=== PATIENT | female | born 1970 | race Caucasian/White ===

== ENCOUNTER → 2017-08-09 | Outpatient (CLI) | payer OTHER ==
--- NOTE | 2017-08-10 13:48 | KCIC ---
DATE: 08/09/2017 EXAM: MAMMO JAROCHO SCREENING BILATERAL HISTORY: Routine screening. COMPARISON: 07/31/2016 and 05/03/2015. This study was interpreted with the benefit of Computerized Aided Detection (CAD). FINDINGS: The parenchymal pattern is stable. No dominant mass or malignant appearing microcalcifications are seen. The axillae are unremarkable. Breast Density: HETERO The breast parenchyma is heterogeneously dense, which could reduce sensitivity of mammography. Breast parenchyma level C. IMPRESSION: No mammographic features suspicious for malignancy are identified. BI-RADS CATEGORY: 1 NEGATIVE RECOMMENDED FOLLOW-UP: 12M 12 MONTH FOLLOW-UP PQRS compliance statement: Patient information was entered into a reminder system with a target due date 08/09/2018 for the next mammogram. Mammography is a sensitive method for finding small breast cancers, but it does not detect them all and is not a substitute for careful clinical examination. A negative mammogram does not negate a clinically suspicious finding and should not result in delay in biopsying a clinically suspicious abnormality. "Our facility is accredited by the [employer] Mammography [employer]."
== END | disposition home or self-care (01) ==
LOC: KCIC MAMMO 17:36
PROVIDERS: ATTEND Physician Assistant Medical
DX: Z12.31 Encounter for screening mammogram for malignant neoplasm of breast (principal)
CPT/HCPCS: 77063; G0202; 77067

== ENCOUNTER → 2018-08-24 | Outpatient (CLI) | payer OTHER ==
--- NOTE | 2018-08-24 16:50 | KCIC ---
3d digital tomography Bilateral History: Routine screening Technique: Bilateral 3d digital tomographic views were obtained with [employer] and reviewed on a [employer] workstation. In addition, CAD - computer aided detection was utilized. Comparison: August 09, 2017. Findings: Breast Tissue Density C : The breast tissue is heterogeneously dense. Scattered fibroglandular elements may obscure underlying pathology. There is a new small round density in the far lateral left breast seen on the CC view only. There are no suspicious microcalcifications or areas of architectural distortion. Impression: Asymmetric tissue density on the left. Recommend patient return for an xcc and true lateral view and ultrasound evaluation. The patient and the clinical service will be contacted by the radiology staff for further instructions. BI-RADS Category 0: Incomplete: Need additional imaging evaluation. The patient will receive a letter with the results in the mail. Your mammogram demonstrates that you have dense breast tissue, which could hide abnormalities, and if you have other risk factors for breast cancer that have been identified, you might benefit from supplemental screening tests that may be suggested by your ordering physician. Dense breast tissue, in and of itself, is a relatively common condition. This information is not provided to cause undue concern, but rather to raise your awareness and to promote discussion with your physician regarding the presence of other risk factors, in addition to dense breast tissue. A report of your mammography results will be sent to you and your physician. You should contact your physician if you have any questions or concerns regarding this report. A mammogram does not have 100% sensitivity and therefore a negative imaging study should not delay further work up of a suspicious abnormality. Patient information is entered into the [facility] reminder system using [employer] with a target due date for the next screening mammogram. The patient will receive a reminder. "Our facility is accredited by the [employer] Mammography [employer]." Electronically signed by: Sp Tellez III, MD (08/24/2018 4:46 PM) [id number]
== END | disposition home or self-care (01) ==
LOC: KCIC MAMMO 13:16
PROVIDERS: ATTEND Physician Assistant Medical
DX: Z12.31 Encounter for screening mammogram for malignant neoplasm of breast (principal)
CPT/HCPCS: 77063; 77067

== ENCOUNTER → 2018-09-13 | Outpatient (CLI) | payer OTHER ==
--- NOTE | 2018-09-13 14:07 | KCIC ---
Left breast diagnostic digital mammogram: Reason for examination: Nodular density on screening mammogram. Comparison is made to mammographic exam dated 08/24/2018. Additional lateral and exaggerated cc views of the left breast were obtained. With these additional views, there is still subtle nodularity suggested posterior laterally at approximately the 2:00 C position. This nodule shows no associated calcifications. Further evaluation with ultrasound follow-up. IMPRESSION: Small nodule persists at approximately the 2:00 C position of the left breast. Ultrasound to follow. BI-RADS Category 0: Incomplete. Needs additional imaging evaluation. Left breast ultrasound: Ultrasound examination was performed in the area of mammographic concern and at the left axilla. In the 2:00 position 11 cm from the nipple and corresponding to the area of mammographic concern, there appears to be hypoechoic septated lesion with posterior acoustic enhancement measuring 6.9 mm in greatest dimension. The appearance suggests a septated complicated cyst. No suspicious-appearing lesions are seen. No abnormal appearing lymph nodes are seen in the left axilla. IMPRESSION: Small 6.9 mm hypoechoic lesion consistent with a septated cyst at the 2:00 position of the left breast. No suspicious abnormality seen. Recommend reevaluation with ultrasound in 6 months. BI-RADS Category 3: Probably Benign. "Our facility is accredited by the [employer] Mammography [employer]." This patient's information has been entered into a reminder system for the patient to be notified with the results of her examination and a target date for the next mammogram. Electronically signed by: Ruth Ann Virk MD (09/13/2018 2:03 PM) [id number]
== END | disposition home or self-care (01) ==
LOC: KCIC MAMMO 12:44
PROVIDERS: ATTEND Physician Assistant Medical
DX: N63.21 Unspecified lump in the left breast, upper outer quadrant (principal)
CPT/HCPCS: 76641; 77065

== ENCOUNTER → 2018-10-14 | Outpatient (CLI) | payer OTHER ==
--- NOTE | 2018-10-14 16:58 | KCIC ---
Indication:Chronic pain right shoulder TECHNIQUE: 3 views of the right shoulder COMPARISON:None FINDINGS/ impression: No acute fracture or dislocation. No joint space narrowing or productive changes. Visualized right lung is clear. IMPRESSION: No acute findings. No significant arthritic process. Electronically signed by: Titus Lopez DO (10/14/2018 4:55 PM) [id number]
== END | disposition home or self-care (01) ==
LOC: KCIC 10:21
PROVIDERS: ATTEND Physician Assistant Medical
DX: M25.511 Pain in right shoulder (principal); G89.29 Other chronic pain
CPT/HCPCS: 73030

== ENCOUNTER → 2018-11-14 | Outpatient (CLI) | payer OTHER ==
--- NOTE | 2018-11-14 14:19 | KCIC ---
MR of the right shoulder HISTORY: Right shoulder pain, suspected frozen shoulder. Pain since June. TECHNIQUE: Routine multiplanar sequences are obtained. FINDINGS: The acromioclavicular joint is mildly degenerative, small undersurface osteophytes with mild mass effect. Rotator cuff demonstrates mild signal and thickening compatible with tendinosis. Mild focal fluid signal within the supraspinatus footplate attachment but no definite underside or bursal side violation. Trace fluid in the subdeltoid bursa. Mild partial subscapularis tendon tear. No significant joint effusion. Biceps tendon appears intact. Mild cystic changes at the humeral head. No aggressive bone destruction. No acute fracture. No acute soft tissue abnormality. Mild signal at the posterosuperior labrum, compatible with degeneration versus degenerative tear. IMPRESSION: 1. Rotator cuff tendinosis. Small intrasubstance or concealed defect at the supraspinatus footprint without surface rupture. Mild partial subscapularis tendon tear. 2. Posterosuperior labral signal compatible with degeneration versus a small degenerative tear. Electronically signed by: Michoacano Santos MD (11/14/2018 2:16 PM) [id number]
== END | disposition home or self-care (01) ==
LOC: KCIC MRI 12:17
PROVIDERS: ATTEND Physician Assistant Medical
DX: S46.811A Strain of other muscles, fascia and tendons at shoulder and upper arm level, right arm, initial encounter (principal); M75.81 Other shoulder lesions, right shoulder; M25.711 Osteophyte, right shoulder; M25.611 Stiffness of right shoulder, not elsewhere classified; R29.898 Other symptoms and signs involving the musculoskeletal system; X58.XXXA Exposure to other specified factors, initial encounter; Y93.89 Activity, other specified; Y92.89 Other specified places as the place of occurrence of the external cause; Y99.8 Other external cause status
CPT/HCPCS: 73221

== ENCOUNTER → 2020-03-04 | Outpatient (CLI) | payer OTHER ==
--- NOTE | 2020-03-04 14:27 | RAD ---
EXAMINATION: BREAST LEFT, MAMMO JAROCHO DIAG BILAT History: Reason: 1 yr follow up Left Breast nodule / Spl. Instructions: / History: Comparison: Pulmonary 2016, 08/09/2017, 08/24/2018 Mammographic exams. Left breast ultrasound exam 09/13/2018 Technique: Bilateral digital diagnostic mammogram views were obtained. CAD was utilized. 3-D tomosynthesis images were acquired. Findings: Breast Tissue Density C : The breasts are heterogeneously dense, which may obscure small masses. There are no dominant masses, suspicious microcalcifications, or architectural distortion. Limited left breast ultrasound exam was performed. At the 2:00 region 11 cm from the nipple, there is a 0.84 cm x 0.79 cm x 0.39 cm tall cyst. A single, small very thin echogenic septation is present. Internal echoes previously seen are much less evident. No abnormal flow. No suspicious change in the interval. IMPRESSION: No mammographic evidence of malignancy. Recommend routine screening. BI-RADS category 1: Negative. The images were reviewed with computer aided detection. Patient information is entered into the reminder system with a target due date for the next screening mammogram. Mammography is the most sensitive method for finding small breast cancers, but it does not detect them all and is not a substitute for careful clinical examination. A negative mammogram does not negate a clinically suspicious finding and should not result in delay in biopsying a clinically suspicious abnormality. "Our facility is accredited by the [employer] Mammography Program." Electronically signed by: Bob Major MD (03/04/2020 2:23 PM) [id number]
--- NOTE | 2020-03-04 16:54 | RAD ---
INDICATION: Reason: Post Menopausal Bleeding / Spl. Instructions: / History: COMPARISON: None. TECHNIQUE: Grayscale and color ultrasound images uterus and adnexa. Transabdominal and transvaginal images obtained. Transvaginal images were needed to better visualize structures that were limited on transabdominal imaging. FINDINGS: Uterus: 78 x 53 x 39 mm. Endometrial Stripe: 2 mm. Small fluid in the endometrial stripe Right Ovary: 20 x 18 x 13 mm. Left Ovary: 21 x 16 x 13 mm. Vascular flow identified to bilateral ovaries. IMPRESSION: * Trace amount of fluid within the endometrial stripe which does not appear thickened at this time. * Uterus unremarkable in appearance. Electronically signed by: Rajinder Emery MD (03/04/2020 4:51 PM) [id number]
== END | disposition home or self-care (01) ==
LOC: MAMMO 13:13
PROVIDERS: ATTEND Physician Assistant Medical
DX: R92.8 Other abnormal and inconclusive findings on diagnostic imaging of breast (principal); N95.0 Postmenopausal bleeding; N60.02 Solitary cyst of left breast
CPT/HCPCS: 76641; 76830; 76856; 77066; G0279; 77062